=== PATIENT | female | born 1940 | race Caucasian/White ===

== ENCOUNTER → 2025-01-14 | Outpatient (CLI) | payer MEDICARE, BC, SELFPAY ==
--- NOTE | 2025-01-14 14:30 | XR_ITS ---
Examination: Screening digital mammography, bilateral Computer aided detection 3-D breast Tomosynthesis, bilateral Date and time of exam: January 14, 2025 1429 hours Compared to mammograms dating to August 15, 2018 Indication: Screening Technique: Nonmagnified MLO, CC views of the breasts to been obtained, reconstructed from 3-D Tomosynthesis images. R2 computer aided detection program utilized for evaluation of suspicious masses and/or abnormal calcifications. 3-D Tomosynthesis images obtained. Findings: Scattered areas of fibroglandular density. Benign calcifications. No interval suspicious masses Impression: BI-RADS category II: Benign Findings. Recommend 1 year follow-up mammogram.
== END | disposition home or self-care (01) ==
LOC: CDIM 14:17
PROVIDERS: Referring Provider Internal Medicine; Visit Provider Internal Medicine
DX: Z12.31 Encounter for screening mammogram for malignant neoplasm of breast (principal); R92.323 Mammographic fibroglandular density, bilateral breasts; R92.1 Mammographic calcification found on diagnostic imaging of breast
CPT/HCPCS: 77063; 77067

== ENCOUNTER 2025-05-15 19:21 | Emergency (ER) | payer MEDICARE, BC, SELFPAY ==
[2025-05-15 19:23] VITALS: BP 129/75; PULSE 82; RESP 18; TEMP 37.9; O2SAT 91
[2025-05-15 19:24] VITALS: BMI 28.2
[2025-05-15 19:25] VITALS: PULSE 84; RESP 20; O2SAT 94
--- NOTE | 2025-05-15 19:57 | PD.EDWEAK ---
ED Weakness RME/HPI General Chief complaint: Weakness Stated complaint: FALL/Dehydration Time Seen by Provider: 05/15/25 19:47 Arrival date/time: 05/15/25 19:21 Mode of arrival: EMS RME / HPI MD Complaint: generalized weakness Location: generalized RME / HPI Narrative: DR. NOWAK MAIN ED EVALUATION: 84 y/o female with Hx of Seizures, GERD, and Hypothyroidism BIBA from home presents with generalized weakness, nausea and vomiting, and decreased PO intake x 2 days. Patient states that she does not care to eat. As she was walking to the restroom she suddenly felt weak and fell sitting onto the piano bench, stating she had difficulty in helping herself up. Patient took ASA this morning and also reports taking prescribed Pepcid and Levothyroxine. Patient recalls entirety of events and denies LOC or head strike. Also denies chest pain, abdominal pain, hematuria, dysuria, and bloody or tarry stool. Related Data Home Medications ?Medication ?Instructions ?Recorded ?Confirmed Levothyroxine * (SYNTHROID *) 88 mcg PO QDAY #0 tabs 03/18/14 08/30/18 atenolol 25 mg tablet (Tenormin) 25 mg PO QAM #0 tabs 03/18/14 08/30/18 lisinopril 10 mg tablet 10 mg PO QDAY #0 tabs 03/18/14 08/30/18 simvastatin 40 mg tablet (Zocor) 40 mg PO HS #0 tabs 03/18/14 08/30/18 ASPIRIN (ASA 81MG EC) 81 mg PO QDAY ##0 09/13/16 08/30/18 Multivitamins W-Minerals/Lut 1 tab [employer] QDAY ##0 09/13/16 08/30/18 (Vision Vitamins Tablet) UBIDECARENONE (COQ10) 300 mg PO QDAY ##0 09/13/16 08/30/18 biotin 2,500 mcg capsule 5,000 mcg PO QDAY #0 caps 09/13/16 08/30/18 Previous Rx's ?Medication ?Instructions ?Recorded cephalexin 500 mg capsule 500 mg PO QID #20 caps 05/16/25 Allergies Allergy/AdvReac Type Severity Reaction Status Date / Time OLIVES Allergy Unknown Uncoded 02/20/24 05:21 POLLEN Allergy Unknown Uncoded 02/20/24 05:21 Review of Systems Review of Systems Systems Reviewed: All systems reviewed, normal except as documented Past Medical History Past Medical History NEUROLOGIC: Positive Seizures GASTROINTESTINAL: Positive Gastroesophageal Reflux Disease ENDOCRINE: Positive Hypothyroidism Surgical History SURGICAL: Positive Hysterectomy ED Exam Narrative Physical exam: GEN. APPEARANCE: does not look ill/toxic. Patient has good eye contact. Patient is cooperative. VITALS: All vitals were reviewed and the pulse ox is 94% on room air which is low according to my interpretation. HEENT: Normocephalic, atraumatic. Pupils are equal and reactive. Oral mucosa is moist. Patent Nares NECK: Supple, nontender, no thyromegaly, no meningismus, no JVD CHEST: Symmetrical, atraumatic, and with equal expansion , Nontender on palpation no deformity and no crepitus. CARDIOVASCULAR: Heart regular rhythm no murmur or gallop rub or extra beats. LUNGS: Clear to auscultation bilaterally with symmetrical chest rise. No laboring tachypnea or wheezing. No intercostal subcostal retraction. No rales and no rhonchi. ABDOMEN: Soft, flat, nontender to palpation, no guarding or rebound tenderness. There are no abnormal masses palpated. Active and normal bowel sounds. EXTREMITIES: Nontender. No edema. No cyanosis. Good capillary refill SKIN: Warm and dry, no jaundice or rashes noted. MUSCULOSKELETAL: Lower extremities warm and well-perfused, upper extremities 2+ radial pulses bilateral symmetric intact NEURO: No gross focal neurodeficits PSYCHIATRIC: Patient is in normal mood and affect. Course Quality Measures none Orders Category Date Time Status Bedside COVID-19 Antigen Test NOW Care 05/15/25 20:09 Completed Bedside Influenza A&B Antigen Test NOW Care 05/15/25 20:10 Completed EKG (ED ONLY) *Do not use* NOW Care 05/15/25 20:10 Completed CXR [XR chest 1V] Stat Exams 05/15/25 20:09 Completed EKG (ED Only) Stat Exams 05/15/25 20:09 Draft XR pelvis 1-2V Stat Exams 05/16/25 00:16 Completed CBC Stat Lab 05/15/25 20:23 Completed CMP [Comprehensive Metabolic Panel] Stat Lab 05/15/25 20:23 Completed Free T4 (Free Thyroxine) Stat Lab 05/15/25 20:23 Completed INR [Prothrombin Time with INR] Stat Lab 05/15/25 20:23 Completed TSH [Thyroid Stimulating Hormone] Stat Lab 05/15/25 20:23 Completed Troponin I Stat Lab 05/15/25 20:23 Completed UA, C/S IF [Urinalysis, C/S if Indicated] Stat Lab 05/15/25 00:40 Completed Acetaminophen Tab [Tylenol Tab] Med 05/16/25 00:18 Discontinued 650 mg PO X1 ONE Oseltamivir [Tamiflu] Med 05/15/25 23:58 Discontinued 75 mg PO X1 ONE Ringers Lactated 1000 ml [Lactated Ringers] 1,000 ml Med 05/16/25 00:20 Discontinued IV 999 mls/hr cefTRIAXone/D5w 1gm IV premix [Rocephin/D5w 1gm IV Med 05/16/25 02:27 Discontinued premix] 1 gm in 50 ml IV STAT Reevaluation(s) Reevaluation #1: Patient was offered admission, but patient did not want to be admitted. Time: 03:00 Vital Signs Vital signs: Vital Signs Temperature 100.3 F 05/15/25 19:23 Pulse Rate 82 05/15/25 19:23 Respiratory Rate 18 05/15/25 19:23 Blood Pressure 129/75 05/15/25 19:23 Pulse Oximetry (%) 91 L 05/15/25 19:23 Oxygen Delivery Method Room Air 05/15/25 19:23 Weakness MDM Narrative MDM Narrative:: Scribe Attestation: Sagarrio Wiggins am scribing for and in the presence of Dr. Nowak. patient is an 84-year-old female with medical history notable for seizure disorder, hypertension, hypothyroidism and was in the emergency department for diffuse weakness. Vital signs and exam as listed. Concern for ACS arrhythmia electrolyte abnormality viral syndrome pneumonia urinary tract infection among others. Ordered labs EKG chest x-ray amongst others. Ordered medication for symptom relief. Provided patient with fluids. Patient is breathing room air not in respiratory distress. Patient nonseptic nontoxic-appearing at this time. Patient is strong in all 4 extremities, sensation intact, no DISIDA kinesia, intact [id number], no visual field deficits, less likely stroke at this time. Patient is flu positive, provided patient with Tamiflu. Patient febrile likely from flu, provided her with antipyretics. Patient with normocytic anemia, hemoglobin 10.5, I do not have a prior for comparison. No leukocytosis, no left shift. No acute electrolyte abnormalities, no significant metabolic disturbances, troponin not elevated thyroid studies unremarkable. Chest x-ray with basilar bronchitis pattern. EKG performed today at 2014 notable for sinus rhythm, normal intervals, heart rate 81, nonspecific T wave changes, not a cardiac alert. X-ray pelvis without evidence of fracture. UA turbid, nitrite negative, leuk esterase positive, 8 RBCs, 6 WBCs 14 squames. Given symptoms we will treat. On multiple reevaluations patient is hemodynamically stable not in distress will discharge home with close return precautions follow-up with primary care doctor. Patient data External records reviewed:: [facility] previous records (Reviewed prior ED records from 02/20/24. Patient was seen for Fracture of foot.) and EMS form Clinical information provided by:: patient and EMS Social determinants that could affect healthcare access:: none Patient has the following chronic illnesses:: Seizures, GERD, Hypothyroidism How is presenting disease/condition affected by chronic disease/condition?: exacerbated by Evaluation data The following diagnostics were reviewed and interpreted by me:: lab results, radiology exam(s) and EKG tracing(s) (EKG done at 20:15, 81 bpm, normal intervals, non-specific T-wave changes, not a cardiac alert. - Interpreted by Dr. Shakira Nowak.) Lab and/or radiology exams considered but not ordered:: None Interpretation Summary: RADIOLOGY Chest X-Ray: FINDINGS: Normal heart size Mild accentuation basilar bronchovascular markings. No lobar pneumonia or pulmonary edema IMPRESSION: Basilar bronchitis pattern Medications / Prescriptions Medications or Prescriptions considered but not ordered:: None Medication administrations:: Medication Administration History Discontinued Medications Acetaminophen (Acetaminophen 325 Mg Tablet) 650 mg PO X1 ONE Stop: 05/16/25 00:19 Last Admin: 05/16/25 00:43 Dose: 650 mg Documented By: ALICIA Lactated Ringer's (Lactated Ringers) 1,000 mls @ 999 mls/hr IV .Q1H1M ONE Stop: 05/16/25 01:20 Last Infusion: 05/16/25 03:03 Dose: Infused Documented By: Admin: 05/16/25 00:42 Dose: 999 mls/hr Documented By: ALICIA Ceftriaxone Sodium/Dextrose (Rocephin/D5w 1gm Iv Premix) 1 gm in 50 mls @ 100 mls/hr IV STAT STA Stop: 05/16/25 02:56 Last Infusion: 05/16/25 03:40 Dose: Infused Documented By: Admin: 05/16/25 03:02 Dose: 100 mls/hr Documented By: ALICIA Oseltamivir Phosphate (Oseltamivir 75 Mg Capsule) 75 mg PO X1 ONE Stop: 05/15/25 23:59 Last Admin: 05/16/25 00:10 Dose: 75 mg Documented By: ALICIA See above if any. Consultations Consultation(s) initiated? (list below): No Diagnosis Weakness Differential Diagnosis: acute myocardial infarction, anemia, hypoglycemia, hypothyroidism, rhabdomyolysis, sepsis and dehydration Most likely diagnosis given after review of the tests above:: Influenza A, UTI Admission Indicated Admission indicated?: not indicated Explain why admission is indicated or not indicated:: Patient does not meet admission criteria. Admission Request Was there a request for admission?: No Disposition Plan Disposition Plan: Discharge Discharge Attestation Discharge Attestation: The patient and all family members were given an opportunity to ask questions and understood the discharge instructions. Discharge instructions specifically effects, indications for sooner follow up or return to the emergency department, and the expected course of current diagnosis. Patient condition: Stable Discharge Plan Plan Patient Disposition: HOME (Self Care) Prescriptions/Referrals Prescriptions/Med Rec: New cephalexin 500 mg capsule 500 mg PO QID Qty: 20 0RF No Action atenolol [Tenormin] 25 MG tablet 25 mg PO QAM Qty: 0 simvastatin [Zocor] 40 MG tablet 40 mg PO HS Qty: 0 lisinopril 10 MG tablet 10 mg PO QDAY Qty: 0 Levothyroxine * (SYNTHROID *) 88 MCG tablet 88 mcg PO QDAY Qty: 0 ASPIRIN (ASA 81MG EC) 81 MG TABLET, ENTERIC COATED 81 mg PO QDAY Qty: 0 biotin 2,500 MCG capsule 5,000 mcg PO QDAY Qty: 0 Multivitamins W-Minerals/Lut (Vision Vitamins Tablet) 1 TAB tablet 1 tab [employer] QDAY Qty: 0 UBIDECARENONE (COQ10) 50 MG TAB.CHEW 300 mg PO QDAY Qty: 0 Referrals: Goyo Yung MD [Primary Care Provider, Family Practice] - In 1 week Problem List Clinical Impression: Influenza A, Urinary tract infection Patient/Caregiver Discharge Instructions Education Materials: ED Influenza (Adult) Additional Instructions: You are feeling better, your labs today identified that you have influenza A. We have provided you with Tamiflu. You have anemia your hemoglobin is 10.5. He did not have any evidence of kidney or liver dysfunction your cardiac enzyme and thyroid studies were normal. Urine shows evidence of a urinary tract infection we provided you with antibiotics. Your chest x-ray and pelvic x-ray did not identify any acute abnormalities. Please hydrate well, it is important that if you feel weak, have worsening symptoms or any other symptom of concern that you return to the emergency department immediately. Print Language: Greenlandic Stand Alone Forms: Debra Award Info., Patient Portal Info Letter
[2025-05-15 20:07] VITALS: BP 139/62; PULSE 90; RESP 13; TEMP 37.5; O2SAT 94
--- NOTE | 2025-05-15 20:09 | EKG_ITS ---
[facility] Test Date: 2025-05-15 Pat Name: SAL MORALEZ Department: Room: - Gender: Female Speedometer Inspector: : [id number] Requested By: Shakira Andersen Order Number: [id number] Reading MD: Shakira Andersen Measurements Intervals Tram Rate: 81 P: 37 DC: 185 QRS: -5 QRSD: 108 T: 26 QT: 335 QTc: 391 Interpretive Statements SINUS RHYTHM MODERATE ST DEPRESSION [0.05+ mV ST DEPRESSION] No previous ECG available for comparison /[id number]/[email or web address]/[id number].pdf
--- NOTE | 2025-05-15 20:09 | XR_ITS ---
EXAMINATION: AP chest single view TECHNIQUE: AP portable upright chest single view Date and time: May 15, 2025, 2041 hours, comparison March 18, 2014 INDICATIONS: Coughing shortness of breath weakness beginning 3 days ago FINDINGS: Normal heart size Mild accentuation basilar bronchovascular markings. No lobar pneumonia or pulmonary edema IMPRESSION: Basilar bronchitis pattern
[2025-05-15 20:42] LABS: Basophils # (Auto) 0.0 Thou/mm3 (0.0-0.2); Basophils % (Auto) 0 % (0-2.5); Eosinophils # (Auto) 0.0 Thou/mm3 (0.0-0.5); Eosinophils % (Auto) 0 % (0-10); Hematocrit 32.6 % (36.0-46.0); Hemoglobin 10.5 g/dL (12.0-16.0); Immature Granulocytes Auto 0.03 Thou/mm3 (0.00-0.00); Lymphocytes # (Auto) 0.5 Thou/mm3 (1.0-4.8); Lymphocytes % (Auto) 9 % (10-50); Mean Corpuscular HGB Conc 32.2 g/dl (31.0-37.0); Mean Corpuscular Hemoglobin 25.9 pg (25.0-35.0); Mean Corpuscular Volume 80 fL (80-100); Monocytes # (Auto) 0.8 Thou/mm3 (0.0-0.8); Monocytes % (Auto) 15 % (0-12); Neutrophils # (Auto) 4.1 Thou/mm3 (1.8-7.7); Neutrophils % (Auto) 75 % (37-80); Nucleated Red Blood Cell # 0.00 Thou/mm3 (0.00-0.00); Nucleated Red Blood Cell % 0 /100 WBC (0); Platelet Count 187 Thou/mm3 (140-440); RDW Standard Deviation 38.4 fL (36.4-46.3); Red Blood Count 4.06 Miln/mm3 (4.00-5.20); White Blood Count 5.4 Thou/mm3 (3.6-11.0)
[2025-05-15 21:07] LABS: INR 1.0 (0.9-1.3); Prothrombin Time 10.3 Seconds (9.0-12.2)
[2025-05-15 21:25] VITALS: BP 138/66; PULSE 83; RESP 19; TEMP 39.1; O2SAT 96
[2025-05-15 21:26] LABS: Alanine Aminotransferase 18 U/L (10-49); Albumin, Serum 4.0 gm/dL (3.4-4.8); Albumin/Globulin Ratio 1.4 (1.2-2.2); Alkaline Phosphatase 79 U/L (46-116); Anion Gap 9 (7-16); Aspartate Amino Transferase 25 U/L (0-34); BUN/Creatinine Ratio 19 Ratio (12-20); Bilirubin,Total 0.8 mg/dL (0.3-1.2); Blood Urea Nitrogen 19 mg/dL (9-23); Calcium 9.3 mg/dL (8.3-10.6); Calcium (Corrected) 9.3 mg/dL (8.5-10.1); Carbon Dioxide 24.6 mMol/L (20.0-31.0); Chloride 104 mMol/L (98-107); Creatinine (Component) 1.0 mg/dL (0.6-1.3); Estimated Creatinine Clearance 46.1 mL/min (>60); Free T4 (Free Thyroxine) 1.17 ng/dL (0.89-1.76); Globulin 2.8 gm/dL (2.3-3.5); Glucose 107 mg/dL (74-106); Osmolality,Calculated 277 (275-295); Potassium 3.9 mMol/L (3.4-5.1); Sodium 138 mMol/L (136-145); Thyroid Stimulating Hormone 1.86 uIU/mL (0.55-4.78); Total Protein 6.8 gm/dL (5.7-8.2); Troponin I < 0.020 ng/mL (0.0-0.045); eGFR 56 See Note
--- NOTE | 2025-05-15 22:30 | PC.NURSE ---
dr. anderson was made aware of temp and flu a +. no orders given
[2025-05-16] MEDS: OSELTAMIVIR 75 MG CAPSULE PO (00:10)
--- NOTE | 2025-05-16 00:16 | XR_ITS ---
EXAMINATION: AP pelvis single view TECHNIQUE: AP portable supine pelvis single view Date and time: May 16, 2025, 0039 hours INDICATIONS: Patient fell today with injury to the pelvis, pelvic pain FINDINGS: Moderate narrowing hip joints Prominent osteopenia No hip fractures or hip dislocations Bones of the pelvis intact IMPRESSION: No hip or pelvic fracture
[2025-05-16] MEDS: RINGERS LACTATED 1000 ML 1,000 ML 999 ML IV (00:42)
[2025-05-16 00:43] VITALS: TEMP 38.8
[2025-05-16] MEDS: ACETAMINOPHEN 325 MG TABLET 650 MG PO (00:43)
[2025-05-16 00:53] LABS: Collection Type, Urine Clean Catch
[2025-05-16 01:25] LABS: Bilirubin,Urine Negative (Negative); Blood,Urine Negative (Negative); Clarity,Urine Turbid (Clear/Hazy); Color,Urine Yellow (Lt Yel-Yel); Culture Indicated,Urine Not Indicated; Glucose, Urine Negative (Negative); Ketones,Urine Negative (Negative); Leukocyte Esterase,Urine Positive (Negative); Nitrite,Urine Negative (Negative); PH,Urine 5.5 (5.0-7.0); Protein,Urine Trace (Neg - Trace); RBC,Urine 8 /hpf (0-3); Specific Gravity,Urine 1.026 (1.001-1.035); Squamous Epithelial Cell,Urine 14 /hpf (0-5); Urobilinogen,Urine Negative mg/dL (0.0-1.0); WBC,Urine 6 /hpf (0-5)
[2025-05-16 02:39] VITALS: BP 133/65; PULSE 69; RESP 16; TEMP 37.1; O2SAT 93
[2025-05-16] MEDS: cefTRIAXone/D5w 1gm IV premix 1 GM/50 ML BAG IV (03:02)
[2025-05-16 03:03] VITALS: TEMP 37.1
[2025-05-16 03:41] VITALS: BP 133/74; PULSE 71; RESP 18; O2SAT 94
== END 2025-05-16 03:42 | disposition home or self-care (01) ==
PROVIDERS: Emergency Provider Emergency Medicine; PCP Family Medicine
DX: J10.2 Influenza due to other identified influenza virus with gastrointestinal manifestations (principal); N39.0 Urinary tract infection, site not specified; J10.1 Influenza due to other identified influenza virus with other respiratory manifestations; S39.93XA Unspecified injury of pelvis, initial encounter; R94.31 Abnormal electrocardiogram [ECG] [EKG]; I10 Essential (primary) hypertension; W19.XXXA Unspecified fall, initial encounter
CPT/HCPCS: 36415; 71045; 72170; 80053; 81001; 84439; 84443; 84484; 85025; 85610; 87502; 87635; 93005; 96361; 96365; 99284; J0696; J7120; A9270